=== PATIENT | male | born 1965 | race Caucasian/White ===

== ENCOUNTER 2021-12-06 09:17 | Day surgery (SDC) | payer OTHER ==
[2021-12-05 14:38] LABS: BASOPHILS % (AUTO) 0.6 % (0.0-2.0); EOSINOPHILS % (AUTO) 2.6 % (1.0-6.0); HEMATOCRIT 45.9 % (41-53); HEMOGLOBIN 15.7 g/dL (13.5-17.5); LYMPHOCYTES # (AUTO) 2.8 K/uL (1.0-4.8); LYMPHOCYTES % (AUTO) 29.4 % (22.0-44.0); MEAN CORPUSCULAR HEMOGLOBIN 29.7 pg (26.0-34.0); MEAN CORPUSCULAR HGB CONC 34.2 G/dL (31.0-37.0); MEAN CORPUSCULAR VOLUME 87 fL (80-100); MONOCYTES # (AUTO) 0.8 K/uL (0.1-1.0); NEUTROPHILS # (AUTO) 5.6 K/uL (1.8-7.7); NEUTROPHILS % (AUTO) 59.4 % (40.0-70.0); PLATELET COUNT (AUTO) 259 K/uL (150-450); RED BLOOD CELL COUNT(AUTO) 5.29 MIL/uL (4.50-5.90); RED CELL DISTRIBUTION WIDTH 13.7 % (11.5-14.5)
[2021-12-05 14:43] LABS: CALCIUM, TOTAL 9.3 mg/dL (8.8-10.5); CARBON DIOXIDE 27 mmol/L (22-29); CHLORIDE 102 mmol/L (98-107); CREATININE 0.89 mg/dL (0.60-1.30); GLUCOSE,RANDOM 81 mg/dL (70-110); UREA NITROGEN, BLOOD 14 mg/dL (7-18)
[2021-12-05 14:49] LABS: ALANINE AMINOTRANSFERASE 24 U/L (12-78); ALBUMIN 4.6 g/dL (3.4-5.0); ALKALINE PHOSPHATASE 61 U/L (46-116); ANION GAP 5 mmol/L (8-16); ASPARTATE AMINOTRANSFERASE 11 U/L (15-37); BILIRUBIN,TOTAL 0.6 mg/dL (0.1-1.0); POTASSIUM 3.6 mmol/L (3.5-5.1); SODIUM SERUM 134 mmol/L (136-145); TOTAL PROTEIN, SERUM 8.4 g/dL (6.4-8.2)
[2021-12-05 14:53] LABS: GLOMERULAR FILTR. RATE CALC > 60 mL/min (>60)
[2021-12-05 15:24] LABS: INR 1.1 (0.9-1.1); PROTHROMBIN TIME 11.3 SEC (9.4-11.6)
[2021-12-05 15:36] LABS: COVID AG,FIA SOURCE NASAL SWAB
[~2021-12-06] VITALS: Ht 165.1 cm; Wt 94.0 kg
[~2021-12-06 09:17] MED LIST: AMLO-258 PO; ASPI81TA87 PO; ATOR10TA84 PO; CARV6 PO; CHOL200059 PO; CLOP75TA60 PO; FENO160T75 PO; HEPARIN SODIUM 1000 UNITS/NS 0 ML ONE; ICOS0.5C PO; IOHEXOL 350 MG/ML 100 ML VIAL ONE; ISOS30TA92 PO; LIDOCAINE/PF 1% 30 ML VIAL ONE; NITR0.4T52 SL; NITROGLYCERIN 50 MG/D5% WATER 0 ML ONE; SODIUM BICARBONATE 50 MEQ/50 ML VIAL ONE; SODIUM CHLORIDE 0.9% 1,000 ML IV ONE
[2021-12-06] MEDS ORDERED: DiphenhydrAMINE HCL 50 MG CAPSULE PO ONE (09:45)
[2021-12-06] MEDS ORDERED: SODIUM CHLORIDE 0.9% 500 ML IV ONE ×2 (09:45→12:15)
[2021-12-06] MEDS ORDERED: DIAZEPAM 10 MG TABLET PO ONE (09:45)
[2021-12-06] MEDS ORDERED: DiphenhydrAMINE HCL 50 MG CAPSULE ONE (10:02)
[2021-12-06] MEDS ORDERED: LIDOCAINE/PF 1% 30 ML VIAL ONE (11:36)
[2021-12-06] MEDS ORDERED: IOHEXOL 350 MG/ML 100 ML VIAL ONE ×2 (11:36→12:11)
[2021-12-06] MEDS ORDERED: NITROGLYCERIN 50 MG/D5% WATER 250 ML ONE (11:36)
[2021-12-06] MEDS ORDERED: HEPARIN SODIUM 1000 UNITS/NS 1,000 ML ONE (11:36)
[2021-12-06] MEDS ORDERED: SODIUM BICARBONATE 50 MEQ/50 ML VIAL ONE (11:36)
[2021-12-06 11:58] VITALS: BP 132/94
[2021-12-06] MEDS ORDERED: FentaNYL CITRATE PF 100 MCG/2 ML VIAL ONE (11:59)
[2021-12-06] MEDS ORDERED: MIDAZOLAM HCL 2 MG/2 ML VIAL ONE (12:00)
[2021-12-06] MEDS ORDERED: FentaNYL CITRATE PF 100 MCG/2 ML VIAL IVP ONE (12:15)
[2021-12-06] MEDS ORDERED: HEPARIN SODIUM 1000 UNITS/NS 1,000 ML IARTER ONE (12:15)
[2021-12-06] MEDS ORDERED: MIDAZOLAM HCL 2 MG/2 ML VIAL IM ONE (12:15)
[2021-12-06] MEDS ORDERED: LIDOCAINE 1% 30 ML/SOD BICARB 8.4% 4 ML SQ ONE (12:15)
[2021-12-06] MEDS ORDERED: IOHEXOL 350 MG/ML 100 ML VIAL IARTER ONE (12:30)
[2021-12-06] MEDS ORDERED: MIDAZOLAM HCL 2 MG/2 ML VIAL IVP ONE (12:45)
== END 2021-12-06 15:10 | disposition home or self-care (01) ==
LOC: CATHLAB 09:17
PROVIDERS: ATTEND Internal Medicine Cardiovascular Disease
DX: R94.39 Abnormal result of other cardiovascular function study (principal); I10 Essential (primary) hypertension; I25.119 Atherosclerotic heart disease of native coronary artery with unspecified angina pectoris; Z82.49 Family history of ischemic heart disease and other diseases of the circulatory system; E66.9 Obesity, unspecified; Z79.899 Other long term (current) drug therapy; Z98.890 Other specified postprocedural states; Z79.01 Long term (current) use of anticoagulants
CPT/HCPCS: 80053; 85025; 85610; 85730; 36415; 93005; 87426; 93458; 99152; C9803; C1760; J3010; J1644; J3490 ×3; J2250; Q9967